=== PATIENT | male | born 1940 | race Caucasian/White ===

== ENCOUNTER 2016-04-26 08:13 | Inpatient (IN) | payer OTHER ==
[~2016-04-26] VITALS: Ht 180.3 cm; Wt 72.1 kg
--- NOTE | ~2016-04-26 | H ---
[facility] [place] [address] HISTORY AND PHYSICAL Name: DANYELLE LEUNG Room #: 440-P [facility] IN ..#: [id number] Admission: 04/26/16 Attend Phys: Kumar Cheema MD Discharge: 04/27/16 Date of : 42 Report #: [id number] THIS REPORT FOR: //name// CC: Vinod Cheema DATE OF SERVICE: 04/26/2016 CHIEF COMPLAINT: Left hand weakness after prolonged lying on the left side for a radiology procedure. Also pneumothorax. HISTORY OF PRESENT ILLNESS: The patient had a prolonged radiology procedure this morning and he was lying on his left side. He underwent thoracentesis followed by a needle core biopsy of a right lung mass followed by removal of 500 more mL of fluid. At the end of the procedure, he reported difficulty in using his left hand. He was concerned about a stroke, but the CT scan of his head did not show any acute changes. Dr. 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 Apparently, it appears that his extensors of the forearm were affected, as long as subjective slight numbness along the forearm. These symptoms have all steadily improved from immediately after the procedure. Up to the time of my examination, the patient reports that his being able to lift his hand is slowly improving. PAST MEDICAL HISTORY: He was found to have a large right upper lobe mass when he was hospitalized last month. He had it biopsied and only necrotic tissue returned. After treatment with Augmentin for a month, the mass has not changed in size and his licensed therapist referred him for a repeat biopsy. At the time of his first biopsy on March 26, the thoracentesis drained 1800 mL of fluid. In the intervening month, the fluid has reaccumulated, and 3000 mL total were drained today. The cultures from March 26 and Gram-stain were all negative. The biopsies showed benign alveolated lung parenchyma with focal chronic inflammation and no malignant cells were identified. At his hospital stay last month, he was found to have a severe left ventricular dysfunction with a diffuse hypokinesis and an ejection fraction of 30-35%. He was treated with carvedilol and continued his 40 mg of quinapril and furosemide 40 mg daily. His edema slowly improved. He reports recently that his diuretics were "cut in half"; at discharge, it was furosemide 40 mg twice daily. He denies return of his dyspnea on exertion, but his weight loss continues despite an active appetite he reports. He denies pain. PAST MEDICAL HISTORY: In addition to the recently diagnosed diffuse hypokinesis suggestive of a diabetic cardiomyopathy or an infiltrative cardiomyopathy, he has had coronary artery disease with bypass grafting. The echocardiogram did [address] [address] HISTORY AND PHYSICAL Name: DANYELLE LEUNG Room #: 440-P [facility] IN ..#: [id number] Admission: 04/26/16 Attend Phys: Kumar Cheema MD Discharge: 04/27/16 Date of : 42 Report #: [id number] not show segmental abnormalities as would be expected if it were an ischemic cardiomyopathy. Valvular function was essentially normal and diastolic function was reported as being normal. He has longstanding type 2 diabetes for which he has been noncompliant. He takes Lantus insulin at home 12-15 units a day and an unknown sliding scale with Humalog before meals. He has chronic kidney disease and is followed by Dr. Rangel, his bus van driver. He has hyperlipidemia. Please see his previous history and physical for further details. CURRENT MEDICATIONS: Amoxicillin/clavulanic acid 875/125 twice daily ongoing basis for presumed pulmonary abscess, aspirin 325 mg and Plavix 75 mg daily (these have been held for several days prior to the procedure), atorvastatin 40 mg daily, carvedilol 12.5 mg twice daily, citalopram 10 mg once daily was recently started for mood and anxiety, Zetia 10 mg daily, furosemide 40 mg twice daily was "recently cut in half by you Dr. Cheema," quinapril 40 mg, he reports taking half of a tablet daily. Bystolic 5 mg is taken on an as needed basis for high blood pressures. SOCIAL HISTORY: He smokes 2 packs of cigarettes daily and in the past has been a generous drinker. His just recently required institutionalization because of progressive end-stage Parkinson's disease. She remains cognitively intact. He had to move to a small apartment just within the last month and this has been a source of stress. He wishes a [id number]. REVIEW OF SYSTEMS: A brief review of systems is otherwise negative, he does not have any pain he says. PHYSICAL EXAMINATION: GENERAL: Shows a 76-year-old male who appears chronically ill and is currently in no acute distress. HEENT: Unremarkable, his oropharynx is mildly dry. NECK: There is mildly elevated jugular venous pressure in the neck. CHEST: His breath sounds are diminished on the right side, but are full and normal on the left side. CARDIOVASCULAR: S1 and S2 are soft and normal. ABDOMEN: Scaphoid and no organomegaly is noted. EXTREMITIES: He has 2+ edema to just above both ankles. There is dried blood at the tips of several of his toes where he has cut his toe nails slightly too short, this appears old. Although he does have some numbness in his feet, he reported being able to feel my fingers with the light touch being relatively intact. He was not ambulated. He appears to have some difficulty still with extending the left wrist. Intrinsic muscles of the hand seem grossly normal on [facility] [address] [place] [address] HISTORY AND PHYSICAL Name: DANYELLE LEUNG Room #: 440-P [facility] IN ..#: [id number] Admission: 04/26/16 Attend Phys: Kumar Cheema MD Discharge: 04/27/16 Date of : 42 Report #: [id number] the left. Muscles of facial expression appear symmetrical and full. ASSESSMENT: 1. Left forearm/hand weakness after prolonged lying on his left side for the procedure today, left radial neuropraxia a working diagnosis. 1A. Post proceedure pneumothorax. 2. Persistent large right lung necrotic mass. S/P multiple core biopsies for the second time, earlier today. 3. Recurrent/persistent right pleural effusion with 3 liters removed today and 1.8 liters removed a month ago. 4. Moderately severe to severe cardiomyopathy with an ejection fraction of 30-35%. 5. Congestive heart failure. 6. Type 2 diabetes, insulin-dependent, with complications of longstanding noncompliance. 7. Cigarette smoker. 8. Diabetic neuropathy. 9. Chronic kidney disease stage 4 - creatinine of 2.5 is stable. 10. History suggestive of a recent pneumothorax. 11. Other medical problems as in his previous dictation. 12. Continued weight loss. PLAN: He is being admitted overnight. A chest x-ray will be obtained in the morning to look for a pneumothorax and to compare with his previous films from earlier today. A Neurology consultation has been requested to evaluate his left forearm muscle weakness, and should he have a pressure radial neuropathy that is continuing to improve, consideration will be given to his returning home tomorrow. The patient has requested a [id number]. By: 2236 Kumar Cheema MD /nt
--- NOTE | ~2016-04-26 | CNG ---
[facility] [place] [address] CYTO-NONGYN REPORT PROCEDURE Name: DANYELLE CRUZ Room #: 440-P DIS IN M.R.#: [id number] Admission: 04/26/16 Date of : 42 Discharge: 04/27/16 Report #: [id number] Path Case #: [id number] CYTOPATHOLOGY REPORT COLLECTION DATE: 04/26/2016 RECEIVED DATE: 04/26/2016 SUBMITTING PHYS: Dr. Daniel Schuster OTHER PHYS: Dr. Armani Cheema CLINICAL HISTORY: Lung mass See [id number] SPECIMEN(S) RECEIVED: A.Pleural fluid, right * * * * * * * * * * * * FINAL DIAGNOSIS: A. Right Pleural fluid: - No malignant cells identified. -Rare mesothelial cells and scattered inflammatory cells identified. PATHOLOGIST: Solange Worrell M.D. REPORT ELECTRONICALLY SIGNED BY: Solange Worrell M.D. DATE/TIME: 04/27/2016 16:28 * * * * * * * * * * * * GROSS PATHOLOGY: A. Pleural fluid, right: The specimen is submitted unfixed, labeled "Danyelle Cruz". Received by the Cytology Department is 15 mL of yellow fluid. One ThinPrep slide and a cell block were prepared. (kg 04/26/16) CLINICAL QUALITY ASSURANCE SPECIALIST(S): TAMMY Montgomery([facility]) INITIAL CPT CODE(S): A; 94493, 77254 Professional services performed by [facility] at [facility] [address], [place] [address] Technical services performed by [facility] at [address] [place] [address]., [address], [place], [place] [address]. [facility] [address] [place] [address], [address] [facility] [address] [place] [address] CYTO-NONGYN REPORT PROCEDURE Name: DANYELLE CRUZ Room #: 440-P DIS IN M.R.#: [id number] Admission: 04/26/16 Date of : 42 Discharge: 04/27/16 Report #: [id number] Path Case #: [id number] [place] [id number] PHONE: [phone] DIRECTOR: Boni Mathews M.D. * * * END OF REPORT * * *
--- NOTE | ~2016-04-26 | S ---
[facility] [address] [place] [address] SURGICAL PATH RPT PROCEDURE Name: DANYELLE LEUNG Room #: 440-P DIS IN M.R.#: [id number] Admission: 04/26/16 Date of : 42 Discharge: 04/27/16 Report #: [id number] Path Case #: [id number] PATHOLOGY REPORT COLLECTION DATE: 04/26/2016 RECEIVED DATE: 04/26/2016 SUBMITTING PHYS: Dr. Armani Boyd OTHER PHYS: ADDENDUM REPORT (Order Date: 04/28/2016 13:03) ADDENDUM COMMENT: Acid fast bacillus and Gomori methenamine silver stains performed on block A1 are negative for mycobacterial as well as fungal elements, respectively. The originally rendered diagnosis remains unchanged. (IUV:csd; d/t: 04/28/2016) Professional services performed by [facility] at [facility] [address] [place] [address] Technical services performed by [facility] at [address] [place] [address], [address] [place] [address]. ELECTRONICALLY SIGNED BY: Solange Worrell M.D. DATE/TIME:04/28/2016 16:33 SPECIMEN(S) RECEIVED: A.Rt lung bx * * * * * * * * * * * * FINAL DIAGNOSIS: Lung, right lung, needle core biopsy: - Organizing pneumonia with areas of fibrosis and reactive lung parenchyma. (Please see comment) - Negative for malignancy. COMMENT: Examination shows reactive lung parenchyma in a background of marked fibrosis. Type 2 pneumocyte hyperplasia is noted lining the alveolar funk, raising concern for reactive atypical adenomatous changes in the background. Dysplasia or definitive malignant changes are not identified. AFB and GMS are ordered on block A1 and these will be reported in an addendum to follow. Co-review: Dr. Ilsa Zavala. (IUV:csd; d/t: 04/27/2016) [facility] [place] [address] SURGICAL PATH RPT PROCEDURE Name: DANYELLE LEUNG Room #: 440-P DIS IN ..#: [id number] Admission: 04/26/16 Date of : 42 Discharge: 04/27/16 Report #: [id number] Path Case #: [id number] PATHOLOGIST: Solange Worrell M.D. REPORT ELECTRONICALLY SIGNED BY: Solange Worrell M.D. DATE/TIME: 04/27/2016 16:18 * * * * * * * * * * * * GROSS PATHOLOGY: The specimen is received in formalin labeled "Danyelle Leung, right anterior lung mass". Received are six needle cores of pale matias soft tissue ranging in length from 0.7 to 1.8 cm, with each measuring 0.1 cm in diameter. The specimen is filtered and entirely submitted in cassette A1. (CAA; 04/26/2016) CLINICAL HISTORY: None provided INITIAL CPT CODE(S): A; 34726, 76958, 64478 Professional services performed by [facility] at [facility] [address] [place] [address] Technical services performed by [facility] at [address] [place] [address], [address], [place] [address]. [facility] [address] [place] [address] PHONE: [phone] DIRECTOR: Boni Mathews M.D. * * * END OF REPORT * * *
--- NOTE | ~2016-04-26 | D ---
[facility] [place] [address] DISCHARGE SUMMARY Name: DANYELLE LEUNG Room #: 440-P [facility] IN .R.#: [id number] Admission: 04/26/16 Attend Phys: Kumar Cheema MD Discharge: 04/27/16 Date of : 42 Report #: [id number] THIS REPORT FOR: //name// CC: Vinod Cheema DATE OF SERVICE: 04/27/2016 DISCHARGE DIAGNOSES: 1. Compressive left radial neuropathy from lying on his left side for radiology procedure for approximately 90 minutes, slowly improving. At the time of discharge, he was able to elevate his wrist to the horizontal. 2. Large right upper lobe mass biopsy showing organizing pneumonia with areas of fibrosis and reactive lung parenchyma - consistent with an abscess. 3. Parapneumonic exudative effusion that is recurrent. 4. Significant folate deficiency with adequate thyroid and B12 levels. 5. Post-procedure pneumothorax that was improving and of no further significance. 6. Severe left ventricular dysfunction with a diffuse hypokinesis and ejection fraction of 30-35% - currently stable with 2+ edema to above the ankles and clear lung sapp with mildly elevated jugular venous pressure in the neck as evidence of compensated congestive heart failure. 7. He had trimmed the tips of his toenails of several toes to slightly _close and there is some dried blood on the tips. 8. Diabetic peripheral neuropathy. 9. History of coronary artery disease and coronary artery bypass grafting. 10. Hyperlipidemia. 11. Hypertension. 12. Worrisome persistent weight loss despite his report of an active appetite. 13. Longstanding type 2 diabetes and noncompliance with his insulin and his meals. 14. Chronic kidney disease stage 4, followed by Dr. Rangel, his subsystems engineer. 15. Two-pack per day smoker for extensive years and stopped last month when he was diagnosed with his lung tumor and persistent shortness of breath with exercise. 16. Severe malnutrition present on admission. 17. Weakness of gait and currently homebound. 18. Other medical problems as in his previous dictations. SUMMARY OF HISTORY AND PHYSICAL: The patient has a large right lung mass that was biopsied approximately a month ago and a large amount of pleural fluid drained at that time. The mass persists after a month's treatment with antibiotics for presumed abscess and the pleural fluid had recurred. He spent approximately 90 minutes lying on his left side to allow a repeat biopsy of the mass and thoracentesis of 3 liters of fluid. At the end of the procedure, when he sat up, he noted weakness in his left hand. He was admitted for radiology [address] [address] DISCHARGE SUMMARY Name: DANYELLE LEUNG Grecia Room #: 440-P [facility] IN [facility].#: [id number] Admission: 04/26/16 Attend Phys: Kumar Cheema MD Discharge: 04/27/16 Date of : 42 Report #: [id number] observation after the procedure to monitor this left hand weakness, which was felt to be a radial nerve neuropathy from lying on his left side. Overnight, the patient was stable. He reported his left forearm extensor muscles of the wrist to have slowly improved in their strength. He was seen in repeat examination by Dr. Rsutam Schuster, the interventional radiologist, who felt that he continued to have weakness with extension of his left wrist. Dr. Schuster noted that there was a small residual right apical pneumothorax that had improved, occasionally had improved from the day before, and no additional followup was necessary. Neurology consultation was performed by Dr. Marichuy Foster. She did not record a neurological examination related to the left forearm and wrist. At the time of her examination, he reported no numbness or sensory changes. She noted that he was able to elevate his hand to the horizontal line. She noted that his B12 was normal and his folate was deficient, and recommended replacing his Lyn. She recommended an evaluation session with occupational therapy so that he could go home with some exercises that might help his wrist extension. Her diagnosis was a left radial neuropathy. He received the occupational therapy session and as presumed his sister was present with him at that time, and he was then discharged to be followed with follow up sessions for physical therapy, balance and strengthening and endurance as well as occupational therapy to help improve mobility of his left wrist. LABORATORY DATA/BIOPSY RESULTS: At the time of dictation, the pleural fluid cytology has returned and is negative for malignant cells. The tissue biopsy showed an organizing pneumonia with areas of fibrosis and reactive lung parenchyma, and was negative for malignancy. Acid-fast bacillus and Gomori methenamine silver stains were negative for microbacteria as well fungal elements. WBCs were seen in the chest fluid Gram stain, but no organisms were seen. No acid-fast bacillus were seen. Creatinine is at 2.4, which is close to his baseline. Note is made that on 03/26/2016 his creatinine was 3.3, when he was in the midst of a more aggressive diuresis because of his cardiomyopathy. His BUN was 38. Albumin was 2.0. INR was 1.3. WBCs were 11,600, hemoglobin was 10.1, and had improved from 9.0 a month earlier. TSH was 2.418, free T4 was 1.11, vitamin B12 was 798, these were all normal. The folate was low at 4.9 (8.6-58.9). [address] [address] DISCHARGE SUMMARY Name: DANYELLE LEUNG Room #: 440-P [facility] IN [facility]#: [id number] Admission: 04/26/16 Attend Phys: Kumar Cheema MD Discharge: 04/27/16 Date of : 42 Report #: [id number] He is currently weakened with poor balance and unsteady gait and qualifies for being home-bound. He is to receive occupational therapy and physical therapy due to home health services. He is to be seen in my office next week for further evaluation regarding the extension of his left wrist and his other medical problems. He is to follow up with his research quality assurance specialist, Dr. Armani Boyd, regarding the results of his lung biopsy showing an organizing pneumonia with fibrosis. I have asked that he bring all of his medications and insulin in the office with him when he returns to see me. He should be taking a new medication at discharge: Folic acid 1 mg tablet once daily. Otherwise, his medications remained unchanged: Atorvastatin 40 mg daily, ezetimibe (Zetia) 10 mg daily, quinapril 40 mg tablets - half a tablet 20 mg in the morning, insulin glargine 12-15 units at bedtime and insulin lispro (Humalog) on an unknown sliding scale before meals, carvedilol 12.5 mg twice daily and furosemide 40 mg at 7 and at 2 p.m. daily with the exception that he was told to take half this much recently, clopidogrel 75 mg daily, aspirin 325 mg daily along with Bystolic 10 mg once daily if he needs extra blood pressure lowering. He is to continue amoxicillin/clavulanic acid 875/125 twice daily on a continuous basis for his lung abscess, citalopram 10 mg once daily was started a month ago to help with his mood and is to be continued. By: [id number] Kumar Cheema MD /nt
[~2016-04-26 08:13] MED LIST: ACCUPRIL40 MG PO; ACTOS15 MG PO; AMARYL4 MG PO; ASPIRIN325 PO; AVAPRO 150 MG150 M1 PO; AVAPRO300 MG PO; BYSTOLIC10 MG PO; CARVEDILOL12.5 MG PO; FLOMAX PO; FLOMAX0.4 MG PO; GLUCOPHAGE1000 MG PO; HUMALOG100 UNIT/1 SUBQ; IBUPROFEN 400400 M1 PO; INDAPAMIDE2.5 MG PO; LANTUS100 UNIT/M SUBQ; LASIX 40 MG TAB40 M1 PO; LIPITOR40 MG PO; NAPROSYN500 MG PO; NORCO 5-325 TA1 EACH PO; PLAVIX 75 MG TA75 MG PO; VITAMIN D2000 UNIT PO; ZETIA10 MG PO; ZOFRAN 4 MG ORAL4 M1 DIS
[2016-04-26 08:39] LABS: HEMATOCRIT 30.9 % (42.0-52.0); HEMOGLOBIN 10.1 gm/dL (14.0-18.0); MCH 27.3 pg (26.0-34.0); MCHC 32.5 g/dL (28.0-37.0); MCV 83.9 fL (80.0-100.0); RBC 3.69 mil/uL (4.50-6.00); RDW 17.1 % (10.5-14.5); WBC 11.6 thou/uL (4.0-11.0)
[2016-04-26 09:04] LABS: CALCIUM 8.8 mg/dL (8.5-10.1); CREATININE 2.4 mg/dL (0.6-1.3); POTASSIUM 3.8 mmol/L (3.5-5.1)
[2016-04-26 09:09] LABS: TOTAL BILIRUBIN 0.5 mg/dL (<0.1-1.0); TOTAL PROTEIN 6.6 g/dL (6.4-8.2)
[2016-04-26] MEDS ORDERED: ASPIRIN325 PO (09:11)
[2016-04-26] MEDS ORDERED: PLAVIX 75 MG TA75 M1 PO (09:11)
[2016-04-26 09:28] LABS: INR 1.3; PROTIME 13.1 Seconds (9.3-11.4)
[2016-04-26] MEDS ORDERED: BYSTOLIC 5 MG5 M1 PO (18:37)
[2016-04-26] MEDS ORDERED: AUGMENTIN 875875 MG PO (18:38)
[2016-04-26] MEDS ORDERED: CELEXA10 MG PO (18:38)
[2016-04-27 11:12] LABS: FOLIC ACID 4.9 ng/mL (8.6-58.9); TSH 2.418 uIU/mL (0.358-3.740)
[2016-04-27] MEDS ORDERED: FOLIC ACID 1 MG1 MG PO (13:11)
== END 2016-04-27 14:45 | disposition home health service (06) | DRG 199 ==
LOC: CAT 08:13 → 4S 18:10
PROVIDERS: Internal Medicine Pulmonary Disease; Psychiatry & Neurology Neurology
PROC: BB4BZZZ Ultrasonography of Pleura (ICD-10-PCS; principal; 2016-04-26)
PROC: 0W993ZZ Drainage of Right Pleural Cavity, Percutaneous Approach (ICD-10-PCS; principal; 2016-04-26)
PROC: 0BBK3ZX Excision of Right Lung, Percutaneous Approach, Diagnostic (ICD-10-PCS; principal; 2016-04-26)
DX: J95.811 Postprocedural pneumothorax (principal); J85.1 Abscess of lung with pneumonia; E43 Unspecified severe protein-calorie malnutrition; J90 Pleural effusion, not elsewhere classified; I42.8 Other cardiomyopathies; N18.4 Chronic kidney disease, stage 4 (severe); S44.22XA Injury of radial nerve at upper arm level, left arm, initial encounter; I25.10 Atherosclerotic heart disease of native coronary artery without angina pectoris; E11.22 Type 2 diabetes mellitus with diabetic chronic kidney disease; E78.5 Hyperlipidemia, unspecified; I50.9 Heart failure, unspecified; E11.40 Type 2 diabetes mellitus with diabetic neuropathy, unspecified; R91.8 Other nonspecific abnormal finding of lung field; Z28.21 Immunization not carried out because of patient refusal; Z95.1 Presence of aortocoronary bypass graft; Z87.891 Personal history of nicotine dependence; Z79.4 Long term (current) use of insulin; Z91.19 Patient's noncompliance with other medical treatment and regimen; Z79.82 Long term (current) use of aspirin; Z79.899 Other long term (current) drug therapy; X58.XXXA Exposure to other specified factors, initial encounter; Y93.89 Activity, other specified; Y92.89 Other specified places as the place of occurrence of the external cause; Y99.8 Other external cause status
CPT/HCPCS: 10100

== ENCOUNTER → 2016-05-10 | Outpatient (CLI) | payer OTHER ==
[~2016-05-10] MED LIST changes: +AUGMENTIN 875875 MG PO; +BYSTOLIC 5 MG5 M1 PO; +CELEXA10 MG PO; +FOLIC ACID 1 MG1 MG PO; +PLAVIX 75 MG TA75 M1 PO
== END ==
LOC: CATH 07:03
DX: C34.11 Malignant neoplasm of upper lobe, right bronchus or lung (principal)

== ENCOUNTER → 2016-06-09 | Outpatient (CLI) | payer OTHER | LOC: RAD 11:58 | DX: C34.90 Malignant neoplasm of unspecified part of unspecified bronchus or lung (principal); J90 Pleural effusion, not elsewhere classified; J98.11 Atelectasis ==

== ENCOUNTER → 2016-06-16 | Outpatient (CLI) | payer OTHER ==
--- NOTE | ~2016-06-16 | CNG ---
[facility] [place] [address] CYTO-NONGYN REPORT PROCEDURE Name: DANYELLE CRUZ Room #: [facility].#: [id number] Admission: 06/16/16 Date of : 42 Discharge: Report #: [id number] Path Case #: [id number] CYTOPATHOLOGY REPORT COLLECTION DATE: 06/16/2016 RECEIVED DATE: 06/16/2016 SUBMITTING PHYS: Dr. Armani Boyd OTHER PHYS: Dr. Kumar Cheema CLINICAL HISTORY: Lung mass; Pleural Effusion SPECIMEN(S) RECEIVED: A.Pleural fluid, Chest fluid * * * * * * * * * * * * FINAL DIAGNOSIS: A. Pleural fluid / Chest fluid: - No definite malignant epithelial cells identified. -Specimen consists of hemosiderin-laden macrophages, inflammatory cells, rare mesothelial cells and blood. PATHOLOGIST: Solange Worrell M.D. REPORT ELECTRONICALLY SIGNED BY: Solange Worrell M.D. DATE/TIME: 06/17/2016 17:00 * * * * * * * * * * * * GROSS PATHOLOGY: A. Pleural fluid, Chest fluid: The specimen is submitted unfixed, labeled "Danyelle Cruz". Received by the Cytology Department is ^ mL of 50 fluid. One ThinPrep slide and a cell block were prepared. (mm 06.16.2016) MATERIAL ANALYST(S): TAMMY Montgomery([facility]) INITIAL CPT CODE(S): A; 44062, 22538 Professional services performed by [facility] at [facility] [address], [place] [address] Technical services performed by [facility] at [address] [place] [address]., [address], [place] [address]. [facility] [address] [place] [address], [facility] [address] [place], [place] [address] [place] [address] [place] [address] CYTO-NONGYN REPORT PROCEDURE Name: DANYELLE CRUZ Room #: REG [facility].#: [id number] Admission: 06/16/16 Date of : 42 Discharge: Report #: [id number] Path Case #: [id number] PHONE: [phone] DIRECTOR: Boni Mathews M.D. * * * END OF REPORT * * *
[2016-06-16 09:53] LABS: CALCIUM 8.2 mg/dL (8.5-10.1)
[2016-06-16 09:55] LABS: INR 1.3; PROTIME 13.3 Seconds (9.3-11.4)
== END | disposition home or self-care (01) ==
LOC: ULTRA 08:52
PROVIDERS: Internal Medicine Pulmonary Disease
DX: J90 Pleural effusion, not elsewhere classified (principal); I50.9 Heart failure, unspecified; N18.9 Chronic kidney disease, unspecified